=== PATIENT | female | born 1970 | race Caucasian/White ===

== ENCOUNTER 2017-06-08 19:12 | Observation (INO) | payer OTHER ==
[~2017-06-08] VITALS: Ht 170.2 cm; Wt 82.1 kg
[~2017-06-08 19:12] MED LIST: MULTIPLE VITAM1 EACH PO; Vicodin,Norco 5/325 PO
[2017-06-08 19:36] LABS: HEMATOCRIT 41.6 % (36.0-46.0); MCH 31.9 PG (29.0-34.0); MCHC 34.4 G/DL (30.0-36.0); MCV 92.9 FL (83-99); MEAN PLAT.VOLUME 9.1 uM^3 (9.5-12.4); PLATELET COUNT 307 K/uL (156-360); RBC DIS.WIDTH-CV 11.8 % (11.8-14.6); RBC DIS.WIDTH-SD 40.1 % (39-53); RED BLOOD COUNT 4.48 M/uL (3.80-5.20); WHITE BLOOD COUNT 8.9 K/uL (4.1-10.2)
[2017-06-08 19:45] LABS: CHLORIDE 107 mEq/L (99-109); POTASSIUM 4.4 mEq/L (3.7-5.4); SODIUM 141 mEq/L (136-147)
[2017-06-08 19:47] LABS: GLUCOSE 98 mg/dL (70-99)
[2017-06-08 19:48] LABS: ANION GAP 10 MEQ/L (2-14)
[2017-06-08 19:51] LABS: GFR ESTIMATE (CALCULATED) > 59 mL/min/
[2017-06-08 19:52] LABS: UREA NITROGEN (BUN) 16 mg/dL (9-23)
[2017-06-08 19:57] LABS: TROP-I INTERPRETATION NEGATIVE; TROPONIN-I < 0.01 ng/mL (0.0-0.30)
[2017-06-08] MEDS ORDERED: LO LOESTRIN FE1 EACH PO (20:07)
[2017-06-08 21:34] LABS: TROP-I INTERPRETATION NEGATIVE; TROPONIN-I 0.03 ng/mL (0.0-0.30)
[2017-06-09 02:05] VITALS: BP 123/58
[2017-06-09 03:11] LABS: TROP-I INTERPRETATION NEGATIVE; TROPONIN-I < 0.01 ng/mL (0.0-0.30)
[2017-06-09 06:35] LABS: CHLORIDE 106 mEq/L (99-109); SODIUM 137 mEq/L (136-147)
[2017-06-09 06:37] LABS: GLUCOSE 95 mg/dL (70-99)
[2017-06-09 06:38] LABS: ANION GAP 10 MEQ/L (2-14)
[2017-06-09 06:39] LABS: TOTAL BILIRUBIN 0.5 mg/dL (0.0-1.0)
[2017-06-09 06:41] LABS: ALKALINE PHOSPHATASE 62 IU/L (3-129); GFR ESTIMATE (CALCULATED) > 59 mL/min/
[2017-06-09 06:42] LABS: UREA NITROGEN (BUN) 14 mg/dL (9-23)
[2017-06-09 08:50] VITALS: BP 125/80
[2017-06-09 10:17] LABS: TROP-I INTERPRETATION NEGATIVE; TROPONIN-I < 0.01 ng/mL (0.0-0.30)
== END 2017-06-09 11:59 | disposition home or self-care (01) ==
LOC: EME 19:12 → ENPENDDIS 06-09 → EDOF 06-09 00:19 → ENRESERV 06-09 01:00 → 5WEST 06-09 01:55
PROVIDERS: Emergency Medicine; Physician Assistant
DX: R07.9 Chest pain, unspecified (principal); R51 Headache; Z80.0 Family history of malignant neoplasm of digestive organs; Z79.82 Long term (current) use of aspirin; K59.00 Constipation, unspecified; Z79.3 Long term (current) use of hormonal contraceptives
CPT/HCPCS: 71020; 71275; 74160; 80048; 80053; 84484; 85027; 85379; 93005; 99281; 99285; G0378; J1650; J7030